=== PATIENT | female | born 1980 | race African-American/Black ===

== ENCOUNTER 2016-11-18 07:23 | Emergency (ER) | payer MEDICAID, OTHER ==
[~2016-11-18] VITALS: Ht 162.6 cm; Wt 110.0 kg
[~2016-11-18 07:23] MED LIST: CIPR500T4 PO; GLUC10TA3 PO; GLUCTAB PO; PYRI200T4 PO; VENTAER INH; ZOFR4TAB3 PO
[2016-11-18 07:26] VITALS: BP 159/78; PULSE 95; RESP 20; TEMP 98.9; O2SAT 100
[2016-11-18] MEDS ORDERED: LISI10TA3 PO (07:35)
[2016-11-18] MEDS ORDERED: METF1000 PO (07:35)
--- NOTE | 2016-11-18 07:49 | PD ---
HPI Chief Complaint: Fall Time Seen by Provider: 07:47 Travel History International Travel<30 days: No Contact w/Intl Traveler<30days: No Traveled to known affect area: No History of Present Illness HPI 36-year-old female presents to the emergency department with complaint of left lateral rib cage pain after falling on either Thursday or last week. She denies hitting her head or loss of consciousness. She denies hemoptysis, hematemesis, hematochezia, hematuria. Denies abdominal pain, nausea, vomiting. Pain is worse with certain movements like bending over and doing too much activity bending to the left side. Pain is decreased while at rest. Denies chest pain, shortness of breath. Has not taken any medications or tried any treatments to alleviate her symptoms. Last menstrual period was in July. Possibility of . Allergies to Ceftin and clarithromycin. No other modifying factors or associated signs and symptoms. PFSH Past Medical History Anemia: Yes Arthritis: No Asthma: Yes Autoimmune Disease: No Blood Disorders: No Heart Rhythm Problems: No Cardiovascular Problems: Yes (HTN) High Cholesterol: No Chest Pain: No Congestive Heart Failure: No COPD: No Cerebrovascular Accident: No Cystic Fibrosis: No Diabetes: Yes Patient Takes Glucophage: Yes Diminished Hearing: No Endocrine: Yes Gastrointestinal Disorders: No GERD: No Glaucoma: No Genitourinary: No Headaches: No Hepatitis: No Hiatal Hernia: No Hypertension: Yes Immune Disorder: No Kidney Stones: No Musculoskeletal: No Neurologic: No Psychiatric: No Reproductive: No Respiratory: Yes (ASTHMA) Myocardial Infarction: No Renal Failure: No Seizures: Yes (age 17) Sickle Cell Disease: No Sleep Apnea: No Thyroid Disease: No Ulcer: No ?: Unknown LMP: 07/2017 : 4 Para: 4 Miscarriage: 0 : 0 Ovarian Cysts: Yes Past Surgical History Abdominal Surgery: Yes (hernia) AICD: No Appendectomy: Yes Arteriovenous Shunt: No Cardiac Surgery: No Section: Yes (x 4) Ear Surgery: No Endocrine Surgery: No Eye Surgery: No Genitourinary Surgery: No Gynecologic Surgery: No Insulin Pump: No Joint Replacement: No Neurologic Surgery: No Oral Surgery: Yes (TEETH PULLED) Pacemaker: No Thoracic Surgery: No Other Surgery: Yes (C SECTION X 4, MASSIVE HERNIA REPAIR- MESH) Social History Alcohol Use: Yes (States she continued to drink occasionally before learning of ) Tobacco Use: No Substance Use: No Allergies-Medications (Allergen,Severity, Reaction): Coded Allergies: Ceftin (Verified Allergy, Intermediate, RASH, 11/18/16) Clarithromycin (Verified Allergy, Intermediate, RASH, 11/18/16) Reported Meds & Prescriptions Reported Meds & Active Scripts Active Reported Lisinopril 10 Mg Tab 10 Mg PO DAILY Metformin (Metformin HCl) 1,000 Mg Tab 1,000 Mg PO BIDPC With meals Review of Systems Except as stated in HPI: all other systems reviewed are Neg Physical Exam Narrative GENERAL: Well-nourished, well-developed female patient, in no acute distress SKIN: Warm and dry. HEAD: Atraumatic. Normocephalic. EYES: Pupils equal and round. No scleral icterus. No injection or drainage. ENT: Mucosa pink and moist. NECK: Trachea midline. CHEST: Reproducible tenderness to the left lateral rib cage at approximately the ninth and 10th ribs; no crepitance or deformity. Area is without erythema, edema, ecchymosis. No retractions or use of accessory muscles. CARDIOVASCULAR: Regular rate and rhythm. No murmur appreciated. RESPIRATORY: No accessory muscle use. Clear to auscultation. Breath sounds equal bilaterally. GASTROINTESTINAL: Abdomen soft, non-tender, nondistended. Hepatic and splenic margins not palpable. Bowel sounds are active 4 quadrants. MUSCULOSKELETAL: No obvious deformities. No clubbing. No cyanosis. No edema. NEUROLOGICAL: Awake and alert. Oriented 3. No obvious cranial nerve deficits. Motor grossly within normal limits. Normal speech. Moves all extremities. 5/5 strength to all extremities. PSYCHIATRIC: Appropriate mood and affect; insight and judgment normal. Data Data Last Documented VS Vital Signs Date Time Temp Pulse Resp B/P Pulse Ox O2 Delivery O2 Flow Rate FiO2 11/18/16 07:26 98.9 95 20 159/78 100 Room Air Orders Ed Urine Pregnancytest Poc (11/18/16 07:46) Ribs, Uni (W/Exp Cxr-Min 3vw) (11/18/16 07:54) MDM Medical Decision Making Medical Screen Exam Complete: Yes Emergency Medical Condition: Yes Medical Record Reviewed: Yes Differential Diagnosis Fall, rib contusion, rib fracture Narrative Course 36-year-old female with left lateral rib cage pain after a mechanical fall last Thursday or . Denies hitting her head or loss of consciousness. Denies chest pain or shortness of breath. Denies hemoptysis, hematemesis, hematochezia, hematuria. Abdominal exam is unremarkable. Patient has possibility of . Urine ordered. 0755: Urine negative. Left rib cage with expiratory chest x-ray ordered. Tylenol ordered. 0852: Left rib with extra chest x-ray with no acute findings. Patient will take Tylenol at home for pain. Patient verbalizes understanding and agreement with treatment plan. Patient is medically cleared and stable for discharge. Discussed reasons to return to the emergency department. Instructed patient to follow up with primary care provider. Patient agrees with treatment plan. The patients vital signs are stable and the patient is stable for outpatient follow- up and treatment. Patient discharged home, stable and in no acute distress. Diagnosis Primary Impression: Fall Qualified Code: W19.XXXA - Fall, initial encounter Additional Impression: Contusion of rib on left side Qualified Code: S20.212A - Contusion of rib on left side, initial encounter Referrals: Primary Care Physician Patient Instructions: General Instructions, Rib Contusion (ED) Departure Forms: Tests/Procedures, Work Release Enter return to work date: Nov 19, 2016 Additional Instructions: Ibuprofen or Tylenol as directed and as needed to reduce pain Heating pad and/or ice to affected area to reduce pain Avoid aggravating activities; increase activity as tolerated Follow-up with a primary care provider Return to the emergency department immediately with worsening of symptoms Med/Other Pt SpecificInfo: No Meds Exist/No RX given Disposition: 01 DISCHARGE HOME Condition: Stable Hillary Morales Nov 18, 2016 07:49
--- NOTE | 2016-11-18 08:46 | RADRPT ---
EXAM DATE/TIME: 11/18/2016 08:25 [facility] COMPARISON: No previous studies available for comparison. INDICATIONS : Left sided rib pain, fall. MEDICAL HISTORY : None. SURGICAL HISTORY : None. ENCOUNTER: Initial ACUITY: 1 week PAIN SCORE: 7/10 LOCATION: Left lower ribs FINDINGS: Multiple views of the left ribs were performed. There is no evidence of displaced fracture. No dest ructive lesions or areas of periosteal thickening are seen. Expiratory view of the chest is negative for pneumothorax. The mediastinal structures are midline. CONCLUSION: No acute disease. No evidence of displaced rib fracture. Kin Tam MD on November 18, 2016 at 8:43 Board Certified Radiologist. This report was verified electronically.
== END 2016-11-18 08:57 | disposition home or self-care (01) ==
LOC: NEPK 07:23
DX: S20.212A Contusion of left front wall of thorax, initial encounter (principal); E11.9 Type 2 diabetes mellitus without complications; I10 Essential (primary) hypertension; Z79.84 Long term (current) use of oral hypoglycemic drugs; Z86.2 Personal history of diseases of the blood and blood-forming organs and certain disorders involving the immune mechanism; Z87.09 Personal history of other diseases of the respiratory system; Z86.79 Personal history of other diseases of the circulatory system; W19.XXXA Unspecified fall, initial encounter
CPT/HCPCS: 71101; 84703; 99283

== ENCOUNTER 2017-01-27 18:00 | Emergency (ER) | payer MEDICAID ==
[~2017-01-27] VITALS: Ht 160 cm; Wt 110.0 kg
[~2017-01-27 18:00] MED LIST changes: -CIPR500T4 PO; -GLUC10TA3 PO; -GLUCTAB PO; +LISI10TA3 PO; +METF1000 PO; -PYRI200T4 PO; -VENTAER INH; -ZOFR4TAB3 PO
[2017-01-27 18:02] VITALS: BP 154/89; PULSE 140; RESP 18; TEMP 99.3; O2SAT 96
[2017-01-27] MEDS ORDERED: SODIUM CHLORIDE 0.9% FLUSH 10 ML FLUSH IV FLUSH PRN (19:15)
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
[2017-01-27 19:19] VITALS: O2SAT 100
[2017-01-27 19:25] VITALS: BP 147/82; PULSE 117; O2SAT 98
[2017-01-27 19:47] LABS: BASOPHIL # 0.1 TH/MM3 (0-0.2); BASOPHIL % 0.7 % (0.0-2.0); EOSINOPHIL # 0.1 TH/MM3 (0-0.4); EOSINOPHIL % 0.9 % (0.0-4.0); HEMATOCRIT 35.7 % (35.0-46.0); HEMO FLAGS DIFF FINAL; LYMPH % 16.6 % (9.0-44.0); LYMPHOCYTE # 1.5 TH/MM3 (1.0-4.8); MEAN CELL VOLUME 81.3 FL (80.0-100.0); MEAN CORPUSCULAR HEMOGLOBIN 26.3 PG (27.0-34.0); MEAN CORPUSCULAR HGB CONC 32.4 % (32.0-36.0); MONO % 5.6 % (0.0-8.0); NEUT % 76.2 % (16.0-70.0); PLATELET COUNT 384 TH/MM3 (150-450); RED CELL DISTRIBUTION WIDTH 13.7 % (11.6-17.2); WHITE BLOOD COUNT 9.2 TH/MM3 (4.0-11.0)
[2017-01-27] MEDS ORDERED: ONDANSETRON HCL 4 MG/2 ML VIAL IV PUSH ONE (20:15)
[2017-01-27] MEDS ORDERED: MORPHINE SULFATE 4 MG/ML INJ IV PUSH ONE (20:15)
[2017-01-27] MEDS ORDERED: SODIUM CHLOR 0.9% 1000 ML INJ 1,000 ML IV ONE (20:15)
[2017-01-27 20:17] LABS: ANION GAP 12 MEQ/L (5-15); AST (GOT) 13 U/L (15-37); BICARBONATE 24.5 MEQ/L (21.0-32.0); BLOOD UREA NITROGEN 15 MG/DL (7-18); CHLORIDE 101 MEQ/L (98-107); GLOMERULAR FILTRATION RATE 80 ML/MIN (>89); POTASSIUM 3.6 MEQ/L (3.5-5.1); SODIUM (NA) 137 MEQ/L (136-145)
[2017-01-27 20:19] LABS: ALT (GPT) 20 U/L (10-53)
[2017-01-27 20:21] LABS: ALKALINE PHOSPHATASE 80 U/L (45-117); TOTAL BILIRUBIN ADULT 0.3 MG/DL (0.2-1.0)
[2017-01-27 20:24] LABS: BETA HCG QUANT LESS THAN 1 MIU/ML (0-5)
[2017-01-27 20:36] VITALS: BP 159/83; PULSE 111; O2SAT 99
[2017-01-27] MEDS ORDERED: IOHEXOL 350 MG/ML 10 ML VIAL (for RAD DIAG) IV ONE (22:03)
[2017-01-27 22:30] LABS: BLOOD, URINE MOD (NEG); COMMENT (UR) CULT NOT INDICATED; CULTURE IF INDICATED CULT NOT INDICATED; GLUCOSE,URINE 1000 mg/dL (NEG); KETONE, URINE 80 mg/dL (NEG); MUCUS URINE FEW /lpf (OCC); NITRITE,URINE NEG (NEG); SQUAMOUS EPITHELIAL CELL URINE 8 /hpf (0-5)
[2017-01-27 22:31] LABS: URINE COLOR LIGHT-GREEN (YELLW/STRAW)
[2017-01-27 22:38] VITALS: PULSE 99; RESP 18; O2SAT 98; O2SAT 99
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
[2017-01-27] MEDS ORDERED: IBUP-1129 PO (22:44)
== END 2017-01-27 23:19 | disposition home or self-care (01) ==
LOC: NEPC 18:00
DX: S30.1XXA Contusion of abdominal wall, initial encounter (principal); I10 Essential (primary) hypertension; Y04.2XXA Assault by strike against or bumped into by another person, initial encounter
CPT/HCPCS: 74177; 80053; 81001; 83690; 84702; 84703; 85025; 96361; 96374; 96375; 99285; J2270; J2405; J7030; Q9967

== ENCOUNTER 2017-08-24 18:48 | Emergency (ER) | payer OTHER, MEDICAID ==
[~2017-08-24] VITALS: Ht 161.3 cm; Wt 106.8 kg
[~2017-08-24 18:48] MED LIST changes: +IBUP-1129 PO; -LISI10TA3 PO
[2017-08-24 18:50] VITALS: BP 161/88; PULSE 101; RESP 16; TEMP 98.9; O2SAT 99
[2017-08-24] MEDS ORDERED: ROBA750T PO (20:04)
[2017-08-24] MEDS ORDERED: MOBI15TA PO (20:04)
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
== END 2017-08-24 21:18 | disposition home or self-care (01) ==
LOC: NEPD 18:48
DX: S16.1XXA Strain of muscle, fascia and tendon at neck level, initial encounter (principal); S46.912A Strain of unspecified muscle, fascia and tendon at shoulder and upper arm level, left arm, initial encounter; S39.012A Strain of muscle, fascia and tendon of lower back, initial encounter; V43.52XA Car driver injured in collision with other type car in traffic accident, initial encounter
CPT/HCPCS: 72040; 72100; 84703; 99284

== ENCOUNTER 2017-08-25 12:22 | Emergency (ER) | payer OTHER, MEDICAID ==
[~2017-08-25 12:22] MED LIST changes: -IBUP-1129 PO; +MOBI15TA PO; +ROBA750T PO
[2017-08-25 12:23] VITALS: BP 120/81; PULSE 102; RESP 16; TEMP 98.4; O2SAT 100
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
== END 2017-08-25 14:54 | disposition home or self-care (01) ==
LOC: NEPK 12:22
DX: S29.012A Strain of muscle and tendon of back wall of thorax, initial encounter (principal); V89.2XXA Person injured in unspecified motor-vehicle accident, traffic, initial encounter
CPT/HCPCS: 99282